=== PATIENT | female | born 1975 | race African-American/Black ===

== ENCOUNTER 2018-05-11 17:23 | Emergency (ER) | payer BC, OTHER ==
[~2018-05-11 17:23] MED LIST: DICY20TA11 PO; INSU100V IV; INSU200I4 SQ; ONDA4TAB9 PO; vitamin d PO
[2018-05-11] MEDS ORDERED: TETANUS/DIPHTHERIA TOXOID [ADULT] 0.5 ML VIAL IM ONE (18:43)
== END 2018-05-11 18:59 | disposition home or self-care (01) ==
LOC: EDH 17:23
DX: T25.221A Burn of second degree of right foot, initial encounter (principal); T31.0 Burns involving less than 10% of body surface; E11.9 Type 2 diabetes mellitus without complications; I10 Essential (primary) hypertension; Z79.4 Long term (current) use of insulin; Z90.710 Acquired absence of both cervix and uterus; X11.8XXA Contact with other hot tap-water, initial encounter; Y93.G3 Activity, cooking and baking; Y92.098 Other place in other non-institutional residence as the place of occurrence of the external cause; Y99.8 Other external cause status
CPT/HCPCS: 16020; 90471; 90714

== ENCOUNTER 2019-12-10 13:52 | Emergency (ER) | payer BC, OTHER ==
[~2019-12-10 13:52] MED LIST changes: +ONDA-104 PO; -ONDA4TAB9 PO
[2019-12-10] MEDS ORDERED: ONDANSETRON HCL 4 MG/2 ML VIAL ONE (14:31)
[2019-12-10] MEDS ORDERED: SODIUM CHLORIDE 0.9% 500ML 500 ML IV ONE (14:32)
[2019-12-10] MEDS ORDERED: FAMOTIDINE/PF 20 MG/2 ML VIAL IV ONE (14:33)
[2019-12-10] MEDS ORDERED: MAGNESIUM HYDROXIDE 30 ML/UDCUP ONE (15:09)
[2019-12-10] MEDS ORDERED: LIDOCAINE HCL 2% VISCOUS 15 ML UDCUP ONE (15:19)
== END 2019-12-10 18:05 | disposition home or self-care (01) ==
LOC: EDH 13:52
DX: K52.9 Noninfective gastroenteritis and colitis, unspecified (principal); K52.0 Gastroenteritis and colitis due to radiation; R05 Cough; R10.10 Upper abdominal pain, unspecified; Z20.828 Contact with and (suspected) exposure to other viral communicable diseases; E11.9 Type 2 diabetes mellitus without complications; I10 Essential (primary) hypertension; E78.00 Pure hypercholesterolemia, unspecified; Z91.09 Other allergy status, other than to drugs and biological substances
CPT/HCPCS: 36415; 71045; 74176; 80053; 81001; 84484; 85025; 87046; 87324; 87426; 93005; 96361; 96374; 96375; 99285; J2405; J3490; J7040; U0003

== ENCOUNTER 2021-05-28 12:10 | Emergency (ER) | payer BC, OTHER ==
[~2021-05-28] VITALS: Ht 165.1 cm; Wt 98.9 kg
[~2021-05-28 12:10] MED LIST changes: -DICY20TA11 PO; +DICY20TA3 PO
[2021-05-28] MEDS ORDERED: FAMOTIDINE 20MG VIAL IV ONE (13:00)
[2021-05-28] MEDS ORDERED: 0.9%NACL 1000ML 1,000 ML IV ONE ×2 (13:00→14:00)
[2021-05-28] MEDS ORDERED: ONDANSETRON 4MG INJ IVP ONE ×2 (13:00→18:30)
[2021-05-28 13:18] LABS: BASOPHILS % (AUTO) 0.2 % (0.0-5.0); EOSINOPHILS % (AUTO) 0.2 % (0.0-8.0); HEMATOCRIT 37.8 % (36-48); MEAN CORPUSCULAR HEMOGLOBIN 29.4 pg (27.0-33.0); MEAN CORPUSCULAR VOLUME 91.7 fL (79-99); NEUTROPHILS % (AUTO) 55.3 % (40.0-77.0); PLATELET COUNT (AUTO) 227 K/uL (130-400); RED BLOOD CELL COUNT(AUTO) 4.12 MIL/uL (4.00-5.50); RED CELL DISTRIBUTION WIDTH 12.2 % (11.0-15.5); WHITE BLOOD COUNT (AUTO) 5.8 K/uL (4.8-10.8)
[2021-05-28 13:36] LABS: ALBUMIN 3.2 g/dL (3.5-5.0); BILIRUBIN,TOTAL 0.3 mg/dL (0.2-1.0); CREATININE 1.3 mg/dL (0.5-1.5); POTASSIUM 4.5 mmol/L (3.5-5.1); TOTAL PROTEIN, SERUM 7.6 g/dL (6.0-8.3)
[2021-05-28] MEDS ORDERED: INSULIN HUMULIN R 100 UNIT/ML 3ML IV ONE (14:00)
[2021-05-28 14:51] LABS: APPEARANCE,URINE Clear (CLEAR); BILIRUBIN,URINE Negative (NEGATIVE); COLOR,URINE Yellow (YELLOW); GLUCOSE, URINE (UA) >=1000 mg/dL (NEGATIVE); KETONES,URINE Trace mg/dL (NEGATIVE); LEUKOCYTE ESTERASE ,URINE Negative (NEGATIVE); NITRATE,URINE Negative (NEGATIVE); OCCULT BLOOD,URINE Negative (NEGATIVE); PROTEIN,URINE Trace mg/dL (NEGATIVE); UROBILINOGEN,URINE 0.2 mg/dL (0.2-1.0)
[2021-05-28] MEDS ORDERED: MORPHINE 4 MG SYG IV ONE (15:00)
[2021-05-28 15:26] LABS: BACTERIA,URINE Rare /HPF (None Seen); RBC,URINE 0-1 /HPF (0-1); SQUAMOUS EPITHELIAL CELL,UR Few /HPF (0-2); WBC,URINE 0-1 /HPF (0-1); YEAST,URINE BUDDING Rare /HPF (None Seen)
[2021-05-28] MEDS ORDERED: GUAIF10 PO (17:56)
[2021-05-28] MEDS ORDERED: IBUP-2070 PO (17:56)
[2021-05-28] MEDS ORDERED: ONDANSETRON 4MG INJ ONE (18:01)
[2021-05-28] MEDS ORDERED: ONDA4TAB10 PO (18:03)
[2021-05-28 18:11] VITALS: BP 168/87
== END 2021-05-28 18:13 | disposition home or self-care (01) ==
LOC: EDH 12:10
DX: U07.1 COVID-19 (principal); E11.65 Type 2 diabetes mellitus with hyperglycemia; E78.00 Pure hypercholesterolemia, unspecified; I10 Essential (primary) hypertension
CPT/HCPCS: 36415; 71045; 74176; 80053; 81001; 82948; 84484; 84703; 85025; 87635; 87880; 93005; 96361; 96374; 96375; 99285; C9803; J1815; J2270; J2405 ×2; J3490; J7030 ×2

== ENCOUNTER → 2023-03-08 | Emergency (ER) | payer BC, OTHER ==
[~2023-03-08] VITALS: Ht 167.6 cm; Wt 111.6 kg
[~2023-03-08] MED LIST changes: +GUAIF10 PO; +IBUP-2070 PO; +ONDA4TAB10 PO
[2023-03-08 14:16] VITALS: BP 169/106; PULSE 85; RESP 14
[2023-03-08 14:50] LABS: HEMATOCRIT 33.7 % (36-48); MEAN CORPUSCULAR HEMOGLOBIN 30.6 pg (27.0-33.0); MEAN CORPUSCULAR HGB CONC 32.6 g/dL (32.0-36.0); MEAN CORPUSCULAR VOLUME 93.9 fL (79-99); RED BLOOD CELL COUNT(AUTO) 3.59 MIL/uL (4.00-5.50); RED CELL DISTRIBUTION WIDTH 11.9 % (11.0-15.5)
[2023-03-08 15:00] LABS: CREATININE 1.3 mg/dL (0.5-1.5); POTASSIUM 3.9 mmol/L (3.5-5.1)
[2023-03-08 15:10] LABS: MAGNESIUM 2.1 mg/dL (1.80-2.40)
== END ==
LOC: EDH 13:34
DX: M79.604 Pain in right leg (principal); M79.605 Pain in left leg; Z53.21 Procedure and treatment not carried out due to patient leaving prior to being seen by health care provider
CPT/HCPCS: 36415; 71045; 80048; 83735; 83880; 84484; 85027; 93005

== ENCOUNTER 2023-08-15 13:02 | Emergency (ER) | payer BC, OTHER ==
[~2023-08-15] VITALS: Ht 165.1 cm; Wt 108.9 kg
[2023-08-15 15:04] LABS: BASOPHILS # (AUTO) 0.02 K/uL (0.00-0.20); BASOPHILS % (AUTO) 0.2 % (0.0-5.0); EOSINOPHILS # (AUTO) 0.14 K/uL (0.00-0.70); EOSINOPHILS % (AUTO) 1.6 % (0.0-8.0); HEMATOCRIT 29.9 % (36-48); IMMATURE GRANULOCYTE ABSOLUTE 0.03 K/uL (0-1); LYMPHOCYTES # (AUTO) 2.9 K/uL (1.0-4.8); LYMPHOCYTES % (AUTO) 33.2 % (21.0-51.0); MEAN CORPUSCULAR HEMOGLOBIN 29.5 pg (27.0-33.0); MEAN CORPUSCULAR HGB CONC 32.1 g/dL (32.0-36.0); MONOCYTES # (AUTO) 0.7 K/uL (0.1-1.0); MONOCYTES % (AUTO) 7.3 % (3.0-13.0); NEUTROPHILS # (AUTO) 5.1 K/uL (1.8-7.7); NEUTROPHILS % (AUTO) 57.4 % (40.0-77.0); PLATELET COUNT (AUTO) 347 K/uL (130-400); RED BLOOD CELL COUNT(AUTO) 3.25 MIL/uL (4.00-5.50); RED CELL DISTRIBUTION WIDTH 12.7 % (11.0-15.5); WHITE BLOOD COUNT (AUTO) 8.9 K/uL (4.8-10.8)
[2023-08-15 15:13] LABS: CREATININE 1.2 mg/dL (0.5-1.0); POTASSIUM 3.8 mmol/L (3.5-5.1)
[2023-08-15 15:18] LABS: ALBUMIN 2.8 g/dL (3.5-5.0); BILIRUBIN,TOTAL 0.1 mg/dL (0.2-1.0); TOTAL PROTEIN, SERUM 7.1 g/dL (6.0-8.3)
[2023-08-15 15:23] LABS: B-TYPE NATRIURETIC PEPTIDE 100 pg/mL (0-100)
[2023-08-15] MEDS ORDERED: FURO40TA5 PO (15:56)
[2023-08-15 16:06] VITALS: BP 136/71; PULSE 85; RESP 18; O2SAT 98
== END 2023-08-15 16:07 | disposition home or self-care (01) ==
LOC: EDH 13:02
DX: M79.661 Pain in right lower leg (principal); M79.662 Pain in left lower leg; M79.89 Other specified soft tissue disorders; I12.9 Hypertensive chronic kidney disease with stage 1 through stage 4 chronic kidney disease, or unspecified chronic kidney disease; E11.22 Type 2 diabetes mellitus with diabetic chronic kidney disease; N18.9 Chronic kidney disease, unspecified; D64.9 Anemia, unspecified; Z79.899 Other long term (current) drug therapy; Z98.890 Other specified postprocedural states; Z90.710 Acquired absence of both cervix and uterus; Z90.49 Acquired absence of other specified parts of digestive tract
CPT/HCPCS: 36415; 80053; 83880; 85025; 93005

== ENCOUNTER → 2023-09-09 | Outpatient (CLI) | payer OTHER ==
[~2023-09-09] MED LIST changes: +FURO40TA5 PO
== END | disposition home or self-care (01) ==
LOC: LAB 10:56
PROVIDERS: ATTEND Internal Medicine Cardiovascular Disease
DX: R06.02 Shortness of breath (principal)
CPT/HCPCS: 36415; 83880

== ENCOUNTER → 2023-09-26 | Outpatient (CLI) | payer OTHER ==
[~2023-09-26] MED LIST changes: +ONDA-243 PO; -ONDA4TAB10 PO
== END | disposition home or self-care (01) ==
LOC: SHCH 13:00
PROVIDERS: ATTEND Internal Medicine Cardiovascular Disease
DX: R06.02 Shortness of breath (principal); R60.9 Edema, unspecified
CPT/HCPCS: 93306; 93970